=== PATIENT | male | born 1955 | race Caucasian/White ===

== ENCOUNTER 2016-08-23 20:23 | Emergency (ER) | payer OTHER ==
[~2016-08-23] VITALS: Ht 167.6 cm; Wt 68.0 kg
[2016-08-23 20:32] VITALS: Ht 167.6 cm; Wt 68.0 kg
[2016-08-23] MEDS ORDERED: SOD CHLORIDE 0.9% 500 ML IV STA (20:59)
[2016-08-23] MEDS ORDERED: LEVETIRACETAM IV 1,000 MG in SOD CHLORIDE 0.9% 100 ML IVPB STA (20:59)
--- NOTE | 2016-08-23 21:30 | RADRPT ---
PROCEDURE: CT Brain without contrast. CLINICAL INDICATION: Seizures TECHNIQUE: A CT of the brain was performed on a [employer] 64-slice CT scanner utilizing axial imaging from the skull base through the vertex without IV contrast. Multiplanar reformatted images were made. Images were reviewed on a PACS workstation. The CTDIvol is 45.0 mGy and the DLP is 720 mGycm. COMPARISON: None FINDINGS: There is no intracranial hemorrhage, mass effect, or midline shift. No extra-axial fluid collection is seen. There is diffuse cerebral volume loss with prominence of the cerebral sulci and lateral ventricles. 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 S urgical changes of the left frontal parietal temporal craniotomy. The visualized paranasal sinuses and osseous structures are grossly unremarkable. IMPRESSION: 1. No evidence of acute intracranial pathology. 2. 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 Surgical changes of left frontal pa rietal temporal craniotomy. 3. Diffuse cerebral volume loss. Physician Khoi Date Time Electronically viewed and signed by Physician Khoi on 08/23/2016 21:29 ML/
[2016-08-23 21:49] LABS: ADD SCAN DIFF NO
[2016-08-23 21:50] LABS: HEMATOCRIT 36.6 % (42.0-52.0); HEMOGLOBIN 12.5 g/dl (14.0-18.0); MEAN CORPUSCULAR HEMOGLOBIN 30.4 pg (29.0-33.0); MEAN CORPUSCULAR HGB CONC 34.2 g/dl (32.0-37.0); MEAN CORPUSCULAR VOLUME 89.1 fl (82.0-101.0); MEAN PLATELET VOLUME 10.1 fl (7.4-10.4); PLATELET COUNT 106 10^3/UL (140-415); RED BLOOD COUNT 4.11 10^6/ul (4.70-6.10); RED CELL DISTRIBUTION WIDTH 11.9 % (11.5-14.5); WHITE BLOOD COUNT 6.8 10^3/ul (4.8-10.8)
[2016-08-23 22:02] LABS: ALBUMIN 3.9 g/dl (3.3-4.9)
[2016-08-23 22:03] LABS: POTASSIUM 3.8 mmol/L (3.5-5.1)
[2016-08-23 22:05] LABS: ALBUMIN/GLOBULIN RATIO 1.08; BILIRUBIN,INDIRECT 0.4 mg/dl (0-1.1); BILIRUBIN,TOTAL 0.4 mg/dl (0.2-1.3); CREATININE 0.58 mg/dl (0.61-1.24); TOTAL PROTEIN 7.5 g/dl (6.1-8.1)
[2016-08-23 22:17] LABS: BASOPHIL # 0.3 10^3/ul (0.0-0.1); EOSINOPHILS # 1.2 10^3/ul (0.0-0.5); MONOCYTE # 0.2 10^3/ul (0.3-0.9); NEUTROPHIL # 3.1 10^3/ul (1.6-7.5)
[2016-08-23 22:18] LABS: PLATELET ESTIMATE PLT APPEAR DECREASED
[2016-08-23] MEDS ORDERED: ONDANSETRON 4 MG INJ ONE (22:29)
[2016-08-23] MEDS ORDERED: INSULIN REGULAR, HUMAN 100 UNIT/1 ML 3ML VIAL ONE (22:29)
[2016-08-23] MEDS ORDERED: INSULIN REGULAR, HUMAN 100 UNIT/1 ML 3ML VIAL SC ONE (22:30)
[2016-08-23 22:46] VITALS: BP 142/100; PULSE 86; RESP 19
[2016-08-23] MEDS ORDERED: ONDANSETRON 4 MG INJ IV STA (22:48)
[2016-08-23] MEDS ORDERED: INSULIN REGULAR, HUMAN 100 UNIT/1 ML 3ML VIAL SC STA (22:48)
[2016-08-23] MEDS ORDERED: LEVE750T70 PO (23:19)
--- NOTE | 2016-08-23 23:24 | ERD ---
ER Documentation Chief Complaint Date/Time DATE: 08/23/16 TIME: 23:19 Chief Complaint ems reports seizure and hx of seizures HPI This a 61-year-old male who was reportedly said to have a history of seizures however the patient says he does not. The patient states that he was at home and went to bed with his this afternoon to take a nap. Apparently the reported him seizing in his sleep and EMS arrived the patient was postictal. Seizure was a tonic seizure for a few minutes. Patient was asleep. On arrival the patient is confused and oriented 1. Is not complaining of any pain in his head shoulders chest or other area. He has a history of hypertension and diabetes ROS All systems reviewed and are negative except as per history of present illness. Medications Home Meds Active Scripts Levetiracetam* (Keppra*) 750 Mg Tablet, 750 MG PO BID, #60 TAB Prov:HERLINDAROYALHOLLYCODYRADHA Martin DO 08/23/16 Allergies Allergies: Coded Allergies: No Known Allergy (Unverified , 08/23/16) PMhx/Soc Medical and Surgical Hx: Unable to obtain Smoking Status: Unknown if ever smoked FmHx Unable to obtain due to patient's confusion Physical Exam Vitals Vital Signs Date Time Temp Pulse Resp B/P Pulse Ox O2 Delivery O2 Flow Rate FiO2 08/23/16 22:46 86 19 142/100 100 Nasal Cannula 4.0 08/23/16 20:32 98.3 107 18 151/93 97 Physical Exam Const: Well-developed, well-nourished Head: Atraumatic, normocephalic Eyes: Normal Conjunctiva, PERRLA, EOMI, normal sclera, no nystagmus ENT: Normal External Ears, Nose and Mouth, moist mucus membranes. Neck: Full range of motion. No meningismus, no lymphadenopathy. Resp: Clear to auscultation bilaterally, no wheezing, rhonchi, rales Cardio: Regular rate and rhythm, no murmurs, S1 S2 present Abd: Soft, non tender x 4, non distended. Normal bowel sounds, no guarding or rebound, no pulsitile abdominal masses or bruits Skin: No petechiae or rashes, no ecchymosis , no maculopapular rash Back: No midline or flank tenderness Ext: No cyanosis, or edema, FROM x 4, normal inspection, neurovascularly intact x 4 Neur: Awake and alert, confused and oriented 1. Follows commands STR 5 /5 x 4, sensation intact x 4, no focal findings, cerebellum intact Psych: Normal Mood and Affect Result Diagram: 08/23/16214408/23/162144 Results 24 hrs Laboratory Tests Test 08/23/16 21:45 08/23/16 22:36 Alanine Aminotransferase (ALT/SGPT) 48IU/L Albumin 3.9g/dl Albumin/Globulin Ratio 1.08 Alkaline Phosphatase 135IU/L Anion Gap 20 Aspartate Amino Transf (AST/SGOT) 86IU/L Basophils # 0.310^3/ul Basophils % 4.0% Blood Urea Nitrogen 8mg/dl Calcium Level 9.0mg/dl Carbon Dioxide Level 27mmol/L Chloride Level 93mmol/L Creatinine 0.58mg/dl Direct Bilirubin 0.00mg/dl Eosinophils # 1.210^3/ul Eosinophils % 18.0% Globulin 3.60g/dl Glucose Level 424mg/dl Hematocrit 36.6% Hemoglobin 12.5g/dl Indirect Bilirubin 0.4mg/dl Lymphocytes # 2.010^3/ul Lymphocytes % 29.0% Mean Corpuscular Hemoglobin 30.4pg Mean Corpuscular Hemoglobin Concent 34.2g/dl Mean Corpuscular Volume 89.1fl Mean Platelet Volume 10.1fl Monocytes # 0.210^3/ul Monocytes % 3.0% Neutrophils # 3.110^3/ul Neutrophils % 46.0% Platelet Count 55231^3/UL Platelet Estimate PLT APPEAR DECREASED Potassium Level 3.8mmol/L Red Blood Count 4.1110^6/ul Red Cell Distribution Width 11.9% Sodium Level 136mmol/L Total Bilirubin 0.4mg/dl Total Protein 7.5g/dl White Blood Count 6.810^3/ul Bedside Glucose 340mg/dL Current Medications Medications (Trade) Dose Ordered Sig/Dm Route PRN Reason Start Time Stop Time Status Last Admin Dose Admin Sodium Chloride 500 ml @ 500 mls/hr Q1H STAT IV 08/23/16 20:59 08/23/16 21:58 DC 08/23/16 21:52 Levetiracetam/ Sodium Chloride (Keppra Iv/NS) 110 ml @ 400 mls/hr ONCE STAT IVPB 08/23/16 20:59 08/23/16 21:15 DC 08/23/16 22:19 Insulin Human Regular (Humulin R) 8 unit ONCE ONCE SC 08/23/16 22:30 08/23/16 22:31 Cancel Ondansetron HCl (Zofran Inj) 4 mg STK-MED ONCE .ROUTE 08/23/16 22:29 08/23/16 22:30 DC Insulin Human Regular (Humulin R) 300 unit STK-MED ONCE .ROUTE 08/23/16 22:29 08/23/16 22:30 DC Insulin Human Regular (Humulin R) 6 unit ONCE STAT SC 08/23/16 22:48 08/23/16 22:51 DC 08/23/16 22:54 Ondansetron HCl (Zofran Inj) 4 mg ONCE STAT IV 08/23/16 22:48 08/23/16 22:51 DC 08/23/16 22:53 Procedures/MDM EKG: Rate/Rhythm: Sinus tachycardia heart rate 101 QRS, ST, QT: NORMAL VA, QRS, QT] Impression: NORMAL EKG PROCEDURE: CT Brain without contrast. CLINICAL INDICATION: Seizures TECHNIQUE: A CT of the brain was performed on a GE [employer] 64-slice CT scanner utilizing axial imaging from the skull base through the vertex without IV contrast. Multiplanar reformatted images were made. Images were reviewed on a PACS workstation. The CTDIvol is 45.0 mGy and the DLP is 720 mGycm. COMPARISON: None FINDINGS: There is no intracranial hemorrhage, mass effect, or midline shift. No extra- axial fluid collection is seen. There is diffuse cerebral volume loss with prominence of the cerebral sulci and lateral ventricles. 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 Surgical changes of the left frontal parietal temporal craniotomy. The visualized paranasal sinuses and osseous structures are grossly unremarkable. IMPRESSION: 1. No evidence of acute intracranial pathology. 2. 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 Surgical changes of left frontal parietal temporal craniotomy. 3. Diffuse cerebral volume loss. [facility] Physician Date Time Electronically viewed and signed by [facility] Physician on 08/23/2016 21 :29 ML/ CC: LILIAM RIGGS DO The patient was loaded with IV Keppra 1 g. The patient was reexamined after a few hours he is no longer postictal. The patient is awake and alert and coherent. The patient says he does not have a seizure disorder. The patient says he does recall going to bed with his to take a nap in the next thing he remembers is waking up here. He is not complaining of any pain such as headache or other complaints. We told him strict seizure precautions to follow-up with neurology. Departure Diagnosis: Primary Impression: Seizure disorder Condition: Stable Patient Instructions: Seizure, New Onset, Unk Cause [Adult] Referrals: XI BARNETT MD, APOSTOLOS A. DO Aug 23, 2016 23:24
== END 2016-08-23 23:40 | disposition home or self-care (01) ==
LOC: E/R 20:23
DX: G40.909 Epilepsy, unspecified, not intractable, without status epilepticus (principal); I10 Essential (primary) hypertension; E11.9 Type 2 diabetes mellitus without complications
CPT/HCPCS: 36415; 70450; 80053; 82962; 85025; 96372; 96374; 96375; 99285; J1815; J1953; J2405; J7040

== ENCOUNTER 2017-06-28 16:51 | Inpatient (IN) | END 2017-06-30 13:46 | disposition home or self-care (01) | DRG 433 ==

== ENCOUNTER 2017-08-27 20:43 | Emergency (ER) | END 2017-08-27 23:49 | disposition home or self-care (01) ==

== ENCOUNTER 2017-08-28 18:28 | Emergency (ER) | END 2017-08-28 21:54 | disposition home or self-care (01) ==

== ENCOUNTER 2017-09-09 10:54 | Emergency (ER) | END 2017-09-09 19:36 | disposition home or self-care (01) ==

== ENCOUNTER 2017-10-06 19:43 | Emergency (ER) | END 2017-10-07 04:56 | disposition short-term general hospital (02) ==